=== PATIENT | male | born 1975 | race Caucasian/White ===

== ENCOUNTER 2019-04-18 21:09 | Inpatient (IN) | payer OTHER ==
[~2019-04-18] VITALS: Ht 170.2 cm; Wt 79.0 kg
[~2019-04-18 21:09] MED LIST: CEPH-443 PO; CLIN40GE TOP
[2019-04-18 22:47] VITALS: Ht 170.2 cm; Wt 79.0 kg
[2019-04-19] MEDS ORDERED: oxyCODONE 15 MG TAB PO PRN
[2019-04-19] MEDS ORDERED: oxyCODONE 5 MG TAB PO PRN
[2019-04-19] MEDS: oxyCODONE 5 MG TAB PO PRN ×5 (00:08→22:00)
[2019-04-19] MEDS ORDERED: ONDANSETRON 4 MG INJ IV PRN (01:00)
[2019-04-19] MEDS ORDERED: HYDROmorphONE 0.5 MG/0.5 ML SYG IV PRN (01:00)
[2019-04-19] MEDS ORDERED: MAGNESIUM HYDROXIDE 30ML CUP PO PRN (01:30)
[2019-04-19] MEDS ORDERED: BISACODYL 10 MG SUPP PR PRN (01:30)
[2019-04-19] MEDS ORDERED: POLYETHYLENE GLYCOL 17 GM PACKET PO PRN (01:30)
[2019-04-19] MEDS ORDERED: ACETAMINOPHEN 325 MG TAB PO PRN (01:30)
[2019-04-19] MEDS ORDERED: LACTULOSE 30ML CUP PO PRN (01:30)
[2019-04-19] MEDS: VORICONAZOLE 200 MG TAB PO SCH ×3 (01:35→21:34)
[2019-04-19 03:12] VITALS: BP 118/68; PULSE 78; RESP 18
[2019-04-19] MEDS ORDERED: PENDING SANTYL ORDER FOR WOUND CARE XX PRN (04:30)
[2019-04-19] MEDS ORDERED: VANCOMYCIN 1 GM IVPB SCH (06:00)
[2019-04-19] MEDS ORDERED: VANCOMYCIN 1 GM 250 ML IVPB SCH (06:00)
[2019-04-19] MEDS: PANTOPRAZOLE (EC) 40 MG TAB PO SCH (06:34)
[2019-04-19 09:00] VITALS: BP 111/69; PULSE 88; RESP 19
[2019-04-19] MEDS ORDERED: VORICONAZOLE 200 MG TAB PO SCH (09:00)
[2019-04-19] MEDS: ONDANSETRON 4 MG TAB PO PRN (09:03)
[2019-04-19] MEDS: GABAPENTIN 300 MG CAP PO SCH ×3 (09:05→21:34)
[2019-04-19] MEDS: ENOXAPARIN 40 MG/0.4 ML SYG SC SCH (09:05)
[2019-04-19] MEDS: FAMOTIDINE 20 MG TAB PO SCH ×2 (09:05→21:33)
[2019-04-19] MEDS: DOCUSATE SODIUM 100 MG CAP PO SCH ×2 (09:05→21:32)
[2019-04-19] MEDS ORDERED: VANCOMYCIN IV PER PHARMACY XX SCH (10:00)
[2019-04-19] MEDS: VANCOMYCIN 1.5 GM/NS 250 ML 250 ML IVPB SCH ×2 (12:00→17:13)
[2019-04-19 16:28] VITALS: BP 157/80; PULSE 64; RESP 18
[2019-04-19 19:53] VITALS: BP 118/62; PULSE 92; RESP 18
[2019-04-19] MEDS: SENNA TAB PO SCH (21:32)
[2019-04-20] MEDS: VANCOMYCIN 1 GM 250 ML IVPB SCH ×3 (00:32→17:24)
[2019-04-20] MEDS ORDERED: VANCOMYCIN 1.25 GM/NS 250 ML 250 ML IVPB SCH (01:00)
[2019-04-20 02:00] VITALS: BP 122/70; PULSE 86; RESP 18
[2019-04-20] MEDS: PANTOPRAZOLE (EC) 40 MG TAB PO SCH (06:20)
[2019-04-20 07:00] VITALS: BP 123/58; PULSE 86; RESP 18
[2019-04-20] MEDS: GABAPENTIN 300 MG CAP PO SCH ×3 (08:50→20:55)
[2019-04-20] MEDS: FAMOTIDINE 20 MG TAB PO SCH ×2 (08:50→20:55)
[2019-04-20] MEDS: DOCUSATE SODIUM 100 MG CAP PO SCH ×2 (08:50→20:53)
[2019-04-20] MEDS: VORICONAZOLE 200 MG TAB PO SCH ×2 (08:50→20:55)
[2019-04-20] MEDS: oxyCODONE 5 MG TAB PO PRN ×4 (08:54→19:47)
[2019-04-20] MEDS: ENOXAPARIN 40 MG/0.4 ML SYG SC SCH ×2 (09:00→10:36)
[2019-04-20] MEDS: ONDANSETRON 4 MG TAB PO PRN (09:06)
[2019-04-20] MEDS ORDERED: NACL 0.9% 3 ML SYG IV PRN (11:00)
[2019-04-20] MEDS: PSYLLIUM 28% PACKET PO SCH ×2 (12:25→21:00)
[2019-04-20] MEDS ORDERED: SOD FERRIC GLUC COMPLX 125 MG in SOD CHLORIDE 0.9% 100 ML IVPB SCH (13:00)
[2019-04-20 14:00] VITALS: BP 113/56; PULSE 94; RESP 18
[2019-04-20 20:00] VITALS: BP 130/82; PULSE 98; RESP 18
[2019-04-20] MEDS: SENNA TAB PO SCH (20:55)
[2019-04-21] MEDS: VANCOMYCIN 1 GM 250 ML IVPB SCH ×3 (02:17→17:09)
[2019-04-21] MEDS: oxyCODONE 5 MG TAB PO PRN ×5 (02:20→20:16)
[2019-04-21] MEDS: PANTOPRAZOLE (EC) 40 MG TAB PO SCH (06:34)
[2019-04-21 07:00] VITALS: BP 119/69; PULSE 81; RESP 18
[2019-04-21] MEDS: FAMOTIDINE 20 MG TAB PO SCH ×2 (08:44→20:16)
[2019-04-21] MEDS: DOCUSATE SODIUM 100 MG CAP PO SCH ×2 (08:44→20:15)
[2019-04-21] MEDS: PSYLLIUM 28% PACKET PO SCH ×2 (08:44→20:16)
[2019-04-21] MEDS: GABAPENTIN 300 MG CAP PO SCH ×3 (08:44→20:15)
[2019-04-21] MEDS: VORICONAZOLE 200 MG TAB PO SCH ×2 (08:44→20:16)
[2019-04-21] MEDS: ENOXAPARIN 40 MG/0.4 ML SYG SC SCH (08:48)
[2019-04-21] MEDS: FERROUS SULFATE (EC) 325 MG TAB PO SCH (17:07)
[2019-04-21 17:25] VITALS: BP 123/74; PULSE 87; RESP 18
[2019-04-21 20:00] VITALS: BP 117/63; PULSE 87; RESP 18
[2019-04-21] MEDS: SENNA TAB PO SCH (20:16)
[2019-04-22] MEDS: VANCOMYCIN 1 GM 250 ML IVPB SCH ×3 (00:56→17:36)
[2019-04-22] MEDS: oxyCODONE 5 MG TAB PO PRN ×5 (01:06→20:15)
[2019-04-22] MEDS: PANTOPRAZOLE (EC) 40 MG TAB PO SCH (06:37)
[2019-04-22 08:00] VITALS: BP 135/65; PULSE 82; RESP 18
[2019-04-22] MEDS: FERROUS SULFATE (EC) 325 MG TAB PO SCH ×4 (08:22→20:14)
[2019-04-22] MEDS: DOCUSATE SODIUM 100 MG CAP PO SCH ×2 (08:23→20:14)
[2019-04-22] MEDS: PSYLLIUM 28% PACKET PO SCH (08:24)
[2019-04-22] MEDS: GABAPENTIN 300 MG CAP PO SCH ×3 (08:24→20:14)
[2019-04-22] MEDS: VORICONAZOLE 200 MG TAB PO SCH ×2 (08:24→20:14)
[2019-04-22] MEDS: FAMOTIDINE 20 MG TAB PO SCH ×2 (08:24→20:14)
[2019-04-22] MEDS: ENOXAPARIN 40 MG/0.4 ML SYG SC SCH (08:36)
[2019-04-22] MEDS: ONDANSETRON 4 MG TAB PO PRN (09:47)
[2019-04-22 14:07] VITALS: BP 133/70; PULSE 95; RESP 18
[2019-04-22 20:00] VITALS: BP 116/56; PULSE 95; RESP 18
[2019-04-22] MEDS: POLYETHYLENE GLYCOL 17 GM PACKET PO SCH (20:14)
[2019-04-22] MEDS: SENNA TAB PO SCH (20:14)
[2019-04-22] MEDS: HYDROGEN PEROXIDE 118 ML TOP SCH (20:15)
[2019-04-23] MEDS: VANCOMYCIN 1 GM 250 ML IVPB SCH ×3 (00:21→17:30)
[2019-04-23 02:00] VITALS: BP 122/64; PULSE 88; RESP 18
[2019-04-23] MEDS: PANTOPRAZOLE (EC) 40 MG TAB PO SCH (06:51)
[2019-04-23] MEDS: ONDANSETRON 4 MG TAB PO PRN ×2 (06:51→21:21)
[2019-04-23] MEDS: oxyCODONE 5 MG TAB PO PRN ×4 (07:01→21:23)
[2019-04-23 07:30] VITALS: BP 137/77; PULSE 85; RESP 20
[2019-04-23] MEDS ORDERED: AQUAPHOR 52.5 GM OINT TOP SCH (09:00)
[2019-04-23] MEDS: POLYETHYLENE GLYCOL 17 GM PACKET PO SCH ×2 (09:00→21:23)
[2019-04-23] MEDS: FERROUS SULFATE (EC) 325 MG TAB PO SCH (09:00)
[2019-04-23] MEDS: DOCUSATE SODIUM 100 MG CAP PO SCH ×2 (09:02→21:21)
[2019-04-23] MEDS: FAMOTIDINE 20 MG TAB PO SCH ×2 (09:05→21:22)
[2019-04-23] MEDS: GABAPENTIN 300 MG CAP PO SCH ×3 (09:05→21:21)
[2019-04-23] MEDS: VORICONAZOLE 200 MG TAB PO SCH ×2 (09:05→21:21)
[2019-04-23] MEDS: ENOXAPARIN 40 MG/0.4 ML SYG SC SCH (09:08)
[2019-04-23] MEDS: HYDROGEN PEROXIDE 118 ML TOP SCH ×2 (12:30→21:23)
[2019-04-23 14:00] VITALS: BP 124/65; PULSE 89; RESP 18
[2019-04-23 20:26] VITALS: BP 117/67; PULSE 85; RESP 18
[2019-04-23] MEDS: SENNA TAB PO SCH (21:21)
[2019-04-24] MEDS: VANCOMYCIN 1 GM 250 ML IVPB SCH ×3 (01:16→16:40)
[2019-04-24 02:00] VITALS: BP 122/64; PULSE 88; RESP 18
[2019-04-24] MEDS: PANTOPRAZOLE (EC) 40 MG TAB PO SCH (06:53)
[2019-04-24 07:59] VITALS: BP 128/62; PULSE 85; RESP 18
[2019-04-24] MEDS: POLYETHYLENE GLYCOL 17 GM PACKET PO SCH ×2 (09:38→20:12)
[2019-04-24] MEDS: SILVER SULFADIAZINE 1% 25 GM CR TOP SCH (09:39)
[2019-04-24] MEDS: VORICONAZOLE 200 MG TAB PO SCH ×2 (09:39→20:12)
[2019-04-24] MEDS: oxyCODONE 5 MG TAB PO PRN ×3 (09:39→19:47)
[2019-04-24] MEDS: GABAPENTIN 300 MG CAP PO SCH ×3 (09:39→20:12)
[2019-04-24] MEDS: ENOXAPARIN 40 MG/0.4 ML SYG SC SCH (09:40)
[2019-04-24] MEDS: DOCUSATE SODIUM 100 MG CAP PO SCH ×2 (09:40→20:12)
[2019-04-24] MEDS: FAMOTIDINE 20 MG TAB PO SCH ×2 (09:40→20:12)
[2019-04-24] MEDS: HYDROGEN PEROXIDE 118 ML TOP SCH ×2 (09:41→21:17)
[2019-04-24] MEDS: ONDANSETRON 4 MG TAB PO PRN (10:42)
[2019-04-24 20:01] VITALS: BP 118/65; PULSE 90; RESP 18
[2019-04-24] MEDS: SENNA TAB PO SCH (20:12)
[2019-04-25] MEDS: VANCOMYCIN 1 GM 250 ML IVPB SCH ×3 (01:23→16:04)
[2019-04-25 02:20] VITALS: BP 124/63; PULSE 88; RESP 18
[2019-04-25] MEDS: PANTOPRAZOLE (EC) 40 MG TAB PO SCH (06:25)
[2019-04-25 07:30] VITALS: BP 124/71; PULSE 85; RESP 18
[2019-04-25] MEDS: oxyCODONE 5 MG TAB PO PRN ×3 (09:08→16:04)
[2019-04-25] MEDS: POLYETHYLENE GLYCOL 17 GM PACKET PO SCH (09:12)
[2019-04-25] MEDS: VORICONAZOLE 200 MG TAB PO SCH (09:14)
[2019-04-25] MEDS: FAMOTIDINE 20 MG TAB PO SCH (09:24)
[2019-04-25] MEDS: DOCUSATE SODIUM 100 MG CAP PO SCH (09:25)
[2019-04-25] MEDS: GABAPENTIN 300 MG CAP PO SCH ×2 (09:26→12:46)
[2019-04-25] MEDS: HYDROGEN PEROXIDE 118 ML TOP SCH (09:27)
[2019-04-25] MEDS: SILVER SULFADIAZINE 1% 25 GM CR TOP SCH (09:27)
[2019-04-25] MEDS: ENOXAPARIN 40 MG/0.4 ML SYG SC SCH (09:33)
[2019-04-25 14:00] VITALS: BP 131/69; PULSE 98; RESP 18
== END 2019-04-25 18:45 | DRG 561 ==
LOC: VRC 22:08
PROVIDERS: ADMIT Physical Medicine & Rehabilitation; ATTEND Internal Medicine Pulmonary Disease
PROC: F07Z9FZ Gait Training/Functional Ambulation Treatment using Assistive, Adaptive, Supportive or Protective Equipment (ICD-10-PCS; principal; 2019-04-18)
PROC: F07Z8FZ Transfer Training Treatment using Assistive, Adaptive, Supportive or Protective Equipment (ICD-10-PCS; 2019-04-18)
PROC: F07Z5FZ Bed Mobility Treatment using Assistive, Adaptive, Supportive or Protective Equipment (ICD-10-PCS; 2019-04-18)
PROC: F08Z2FZ Grooming/Personal Hygiene Treatment using Assistive, Adaptive, Supportive or Protective Equipment (ICD-10-PCS; 2019-04-18)
PROC: F08Z0FZ Bathing/Showering Techniques Treatment using Assistive, Adaptive, Supportive or Protective Equipment (ICD-10-PCS; 2019-04-18)
PROC: F08Z1FZ Dressing Techniques Treatment using Assistive, Adaptive, Supportive or Protective Equipment (ICD-10-PCS; 2019-04-18)
DX: S42.302D Unspecified fracture of shaft of humerus, left arm, subsequent encounter for fracture with routine healing (principal); S82.002E Unspecified fracture of left patella, subsequent encounter for open fracture type I or II with routine healing; S67.197D Crushing injury of left little finger, subsequent encounter; D50.9 Iron deficiency anemia, unspecified; I10 Essential (primary) hypertension; V29.9XXD Motorcycle rider (driver) (passenger) injured in unspecified traffic accident, subsequent encounter
CPT/HCPCS: 36573; 80048; 80053; 80202; 81003; 83540; 85025; 85610; 85730; 87081; 87086; 97110; 97112; 97116; 97163; 97167; 97530; 97535; 97542; J1650; J2405; J2916; J3370